=== PATIENT | male | born 1930 | race Caucasian/White ===

== ENCOUNTER → 2017-02-23 | Day surgery (SDC) | payer MEDICARE, OTHER ==
[~2017-02-23] VITALS: Ht 175.3 cm; Wt 75.0 kg
[~2017-02-23] MED LIST: CALC1TAB99 PO; DABI150C PO; FINA5TAB9 PO; GABA800T2 PO; LANS30CA PO; LATA2.5D6 BOTH_EYES; Lactated Ringer's 1,000 ML IV ONE; MULT-56 PO; NAPR220C11 PO; OMEP-113 PO; Propofol 10,000 mCg/mL 20 mL Inj ONE; TAMS0.4C98 PO; VIT1CAPS8 PO
[2017-02-23 11:50] VITALS: BP 147/92; PULSE 76; RESP 14; O2SAT 94
--- NOTE | 2017-02-23 12:09 | PCM.HPANE ---
Patient Data Surgeon Admitting Provider: Attending Provider:David Nava MD Primary Care Physician:Jesus Campbell MD Other Provider:[facility] Reason for Visit GERD Ht/WT & BMI Height (Feet): 5 Height (Inches): 9 Weight (Kilograms): 75 Body Mass Index 24.00 Allergies Coded Allergies: Penicillins (Verified Allergy, Severe, 02/23/17) Past Anesthesia History Anesthesia History: Denies:: Abnormal Airway, Anesthesia Reactions, Difficult Intubation, Fam Anesthesia Reaction, Fam Malignant Hypertherm, Malignant Hyperthermia Diabetes History Hx Diabetes?: No MRSA MRSA: No Medications Blood Thinner: Aspirin, Pradaxa Last Dose Blood Thinner: Feb 19, 2017 Reported Medications Lansoprazole 30 Mg Capsule.dr30 Mg PO DAILY #30 CAPSULE Ref 0 02/19/17 Finasteride 5 Mg Tablet5 Mg PO DAILY 30 Days Ref 0 02/19/17 Naproxen Sodium (Aleve)220 Mg Diwyqcn159 Mg PO BID PRN For Pain 09/17/14 Gabapentin 800 Mg [id number] Mg PO TID 09/17/14 Latanoprost 2.5 Ml Drops1 Gtt BOTH_EYES HS 09/17/14 Calcium Carbonate/Vitamin D3 (Calcium 600 + Vit D 200 Tablet)1 Each Tablet1 Each PO DAILY 09/16/14 Tamsulosin (Flomax)0.4 Mg Capsule0.8 Mg PO QAM 09/16/14 Dabigatran Etexilate Mesylate (Pradaxa)150 Mg [id number] Mg PO BID 09/16/14 Multivitamin (Daily Vitamin)1 Each Tablet1 Each PO DAILY 09/16/14 Vit C/Vit E/Lutein/Min/[place]-3 (Ocuvite Softgel)1 Each Capsule1 Each PO DAILY 09/16/14 Discontinued Reported Medications Omeprazole Magnesium (Omeprazole)20 Mg Capsule.dr20 Mg PO BID 09/16/14 History History of ENT Problems?: Yes HEENT History: Positive for:: Cataracts Hearing Problem Denies:: Abnormal Airway Difficult Intubation Dysphagia Sinus Problem Denture Type: None Teeth Condition: Within Normal Limits Hx of Heart Problems?: Yes Cardiovascular History: Positive for:: Pacemaker Denies:: AICD Cardiac Surgery Chest Pain Congestive Heart Failure Edema Heart Murmur Hypertension Irregular Heartbeat Thrombophlebitis Valvular Heart Disease Other History/Comments ros NEGATIVE Hx of Respiratory Problem?: No Respiratory History: Positive for:: Dyspnea Other History/Comment at baseline Hx Neurologic Problems?: Yes Neurological History: 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, RT LEG WEAKNESS) Dizziness Hx of GI Problems?: Yes Hx of Problems?: Yes Genitourinary History: Denies:: HX of Hemodialysis Kidney Stones Urinary Tract Infection HX of Peritoneal Dialysis: No Male Hx: Positive for:: Prostate Problems (BPH) Testicular Surgery (L hydrocelectomy) Hx Musculoskeletal Problems?: No Musculoskeletal History: Denies:: Fibromyalgia Joint Replacement Hx of Psycho/Social Problems?: No Psycho Social History: Denies:: Anxiety Hx Depression Hx Surgeries?: No (pacemaker) Hx Any Other Health Problems?: Yes Other History: Denies:: Cancer Endocrine Disease Hospitalization Thyroid Disease History Blood Transfusions: Denies:: Blood Transfuse Reaction Blood Transfusions Hx Diabetes: No Hx Alcohol Use: NoHx Substance Use: No Smoking Status: Former Smoker Have You Smoked inLast 12 mo: No Stop/Bang Treated for Sleep Apnea?: No Do You Have a CPAP Machine?: No (DOESN'T WEAR IT) AVA Category 2: Yes Risk Assessment Category Category 1A: Patient has history of documented sleep apnea, and HAS NOT received any narcotic, sedative or anesthesia administration during this stay. Category 1B: Patient has history of documented sleep apnea, and HAS received any narcotic , sedative or anesthesia administration during this stay Category 2: Patient has SUSPECTED Obstructive Sleep Apnea, and HAS received any narcotic , sedative or anesthesia administration during this stay. Category 3: Patient has SUSPECTED Obstructive Sleep Apnea and HAS NOT received narcotic, sedative or anesthesia administration during this stay. Category 4: Outpatient in Procedural Areas with known sleep apnea or who screen positive for High Risk via the STOP/BANG questionnaire. Exam Exam Vital Signs Vital Signs Date Time Temp Pulse Resp B/P Pulse Ox O2 Delivery O2 Flow Rate FiO2 02/23/17 11:50 36.3 76 14 147/92 94 Room Air General Appearance: Alert, Oriented X3, Cooperative, No Acute Distress HEENT/AIRWAY: MP 2 Lungs: Clear to Auscultation, Normal Air Movement Heart: Exam Unremarkable, Regular Rate/Rhythm, No Murmurs/Rubs/Gallops Plan Impression Patient chart reviewed, patient interviewed and anesthestic plan with risks, benefits, and alternatives discussed, and informed consent obtained. ASA Physical Status: ASA3 Severe Disease Anesthetic Plan: GA Bene/Risks/Altern/Consents: Yes HP Complete Prior to Induction: Yes David Zheng MD Feb 23, 2017 12:09
[2017-02-23 12:30] VITALS: BP 132/81; PULSE 60; RESP 16; O2SAT 96
--- NOTE | 2017-02-23 12:37 | PCM.ANEP1 ---
Post Anesthesia PACU Phase 1 Assessment Vital Signs Vital Signs Date Time Temp Pulse Resp B/P Pulse Ox O2 Delivery O2 Flow Rate FiO2 02/23/17 12:30 60 16 132/81 96 Room Air 02/23/17 11:50 36.3 76 14 147/92 94 Room Air Anesthetic Administered: GA Level of Alertness: Sleepy, easy to arouse DAHL's with Equal Strength: Yes Pain: No Nausea or Vomiting: No CV Function & Hydration Stable: Yes Airway Device: Oxygen Delivery: Room Air Lungs: Clear to Auscultation, Normal Air Movement Dermatome Level: Full Sensation PACU Phase 2 Assessment Complications: No Follow up Care: No Patient Instructions Provided: N/A David Zheng MD Feb 23, 2017 12:37
[2017-02-23 12:40] VITALS: BP 122/70; PULSE 60; RESP 16; O2SAT 97
[2017-02-23 12:50] VITALS: BP 143/83; PULSE 60; RESP 16; O2SAT 97
[2017-02-23 13:00] VITALS: BP 143/77; PULSE 60; RESP 16; O2SAT 98
--- NOTE | 2017-02-23 14:56 | ENDO ---
[address] [address] ENDOSCOPY PROCEDURE PATIENT: SHIVANI ARRIOLA : 1930 MR#: [id number] ADMIT: 02/23/2017 JOB ID: [id number] DATE: 02/23/2017 TYPE OF OPERATION: Esophagogastroduodenoscopy with biopsy. PREOPERATIVE DIAGNOSIS(ES): Gastroesophageal reflux disease and dysphagia. POSTOP DIAGNOSIS: Normal upper endoscopy status post biopsy. ANESTHESIA: Monitored anesthesia care. COMPLICATIONS: None. BLOOD LOSS: Minimal. DESCRIPTION OF PROCEDURE: After risks and benefits were explained to the patient, informed was obtained. After anesthesia administered, upper endoscope was then inserted into mouth and intubating to esophagus, stomach, second portion of duodenum. Mucosa carefully examined. After procedure was done, the scope was withdrawn and the procedure terminated. FINDINGS: Upon inspection of the esophagus, the esophagus appeared normal without masses, ulcers or lesions. Z-line located 40 cm from incisors. Upon entering the stomach, the stomach was also normal without masses, ulcers, lesions. Retroflexion was normal. Duodenal bulb, first and second portion normal. Biopsy taken of the antrum, body and distal esophagus. IMPRESSIONS: Normal upper endoscopy with septal biopsy. RECOMMENDATION: 1. Await pathology results. 2. Followup in GI clinic as needed.
--- NOTE | 2017-02-26 10:37 | PATH ---
SURGICAL PATHOLOGY Attending Physician:David Nava MD CASE STATUS: Signed Out PATIENT NAME: SHIVANI ARRIOLA PID: [id number] : 1930 DATE COLLECTED:02/23/2017 19:24 SPECIMEN: 1: Stomach, Antrum, Biopsy 2: Gastric, Biopsy 3: Esophagus, Biopsy 4: Esophagus, Biopsy CLINICAL HISTORY: 1). ANTRUM BIOPSY, RULE OUT H PYLORI 2). GASTRIC BODY BIOPSY, RULE OUT H PYLORI 3). DISTAL ESOPHAGUS BIOPSY 4). MID ESOPHAGUS BIOPSY FINAL DIAGNOSIS: 1. Antrum, Biopsy, Rule Out H. Pylori: -Antral-type mucosa with mild chronic gastritis. -Negative for Helicobacter pylori microorganisms on immunohistochemistry. -Negative for intestinal metaplasia. -Negative for dysplasia and malignancy. 2. Gastric Body Biopsy, Rule Out H. Pylori: -Gastric body-type mucosa with no diagnostic abnormality. -Negative for Helicobacter pylori by immunohistochemistry. -Negative for intestinal metaplasia. -Negative for dysplasia and malignancy. 3. Distal Esophagus Biopsy: -Squamous mucosa with up to 55 eosinophils per high-power field. -Negative for dysplasia and malignancy. See comment. 4. Mid Esophagus, Biopsy: -Squamous mucosa with up to 5 eosinophils per high-power field. -Negative for dysplasia and malignancy. See comment. ICD10: K21. 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 Despite the fact that there are only up to 5 eosinophils per high power field in the mid esophagus (part 4), greater than 50 eosinophils per high-power field in the distal esophagus is unusual in reflux esophagitis alone, which raises the possibility of eosinophilic esophagitis in the appropriate clinical and endoscopic setting. Additionally, proton pump inhibitor responsive esophageal eosinophilia, drug reaction and food allergies may also be a consideration. As part of routine quality assurance advisor, this case was also reviewed by Dr. Durga Benitez, who agrees with the above interpretation. GROSS DESCRIPTION: The specimen is received in four formalin filled containers labeled with the patient's name. 1). The specimen is labeled "antrum" and consists of 2 portions of tissue which aggregate to zero 3 x 0.3 x 0.2 CM. The specimen is entirely submitted in cassette 1A. 2). The specimen is labeled "gastric body" and consists of 2 portions of tissue which aggregate to 0.3 x 0.3 x 0.3 CM. The specimen is entirely submitted in cassette 2A. 3). The specimen is labeled "distal esophagus" and consists of 2 portions of tissue which aggregate to 0.3 x 0.3 x 0.2 CM. The specimen is entirely submitted in cassettes 3A. 4). The specimen is labeled "mid esophagus" and consists of 2 portions of tissue which aggregate to 0.3 x 0.2 x 0.2 CM. The specimen is entirely submitted in cassette 4A. 02/23/2017PR MICRO DESCRIPTION: An immunohistochemical stain was performed to evaluate for Helicobacter pylori microorganism on parts 1 and 2. The control stains show appropriate reactivity. ICD-9 CODES: CPT CODES: 1: 16097, 19501 2: 20779, 58626 3: 53227 4: 47415 Electronically Signed Out Raleigh Quezada MD [facility] [address] [place], [place] [address] Technical component performed at [facility], [facility] [address], [address]
== END | disposition home or self-care (01) ==
LOC: END 02:24
PROVIDERS: ATTEND Internal Medicine Gastroenterology
DX: K29.50 Unspecified chronic gastritis without bleeding (principal); I48.2 Chronic atrial fibrillation; G47.33 Obstructive sleep apnea (adult) (pediatric)
CPT/HCPCS: 43239; 88305; 88342; J2704; J7120